=== PATIENT | female | born 1970 | race Caucasian/White ===

== ENCOUNTER 2018-05-19 09:39 | Emergency (ER) | payer BC, OTHER ==
[2018-05-19 10:36] LABS: BILIRUBIN,URINE NEGATIVE (NEGATIVE); GLUCOSE, URINE (UA) NEGATIVE (NEGATIVE); KETONES,URINE (UA) NEGATIVE (NEGATIVE); LEUKOCYTE ESTERASE, URINE NEGATIVE (NEGATIVE); PROTEIN,URINE NEGATIVE (NEGATIVE); UROBILINOGEN,URINE 0.2 (NORMAL) E.U./dL (NORMAL)
[2018-05-19 10:40] LABS: CLARITY,URINE CLEAR (CLEAR)
[2018-05-19 10:41] LABS: BASOPHILS # (AUTO) 0.1 10^3/uL (0.0-0.1); EOSINOPHILS # (AUTO) 0.1 10^3/uL (0.0-0.7); EOSINOPHILS % (AUTO) 1.2 %; HGB - HEMOGLOBIN 14.7 g/dL (12.0-16.0); LYMPHOCYTES # (AUTO) 1.5 10^3/uL (1.5-3.5); LYMPHOCYTES % (AUTO) 27.4 %; MEAN CORPUSCULAR HEMOGLOBIN 33.6 pg (27.0-31.0); MEAN CORPUSCULAR HGB CONC 34.1 g/dL (32.0-36.0); MEAN CORPUSCULAR VOLUME 98.4 fL (81.0-99.0); MEAN PLATELET VOLUME 8.5 fL (7.9-10.8); MONOCYTES # (AUTO) 0.4 10^3/uL (0.0-1.0); MONOCYTES % (AUTO) 6.3 %; NEUTROPHILS # (AUTO) 3.6 10^3/uL (1.5-6.6); NEUTROPHILS % (AUTO) 64.1 %; PLT - PLATELET COUNT 184 10^3/uL (130-450); RED BLOOD COUNT 4.38 10^6/uL (4.20-5.40); RED CELL DISTRIBUTION WIDTH 12.2 % (12.0-15.0); WHITE BLOOD COUNT 5.6 x10^3/uL (4.8-10.8)
[2018-05-19 10:49] LABS: BACTERIA,URINE Rare /HPF (None Seen); MUCUS,URINE Few Strands; RBC,URINE 0-5 /HPF (0-5); SQUAMOUS EPITHELIAL CELL,UR RARE Squamous (<= Few)
[2018-05-19 11:13] LABS: ALBUMIN 4.4 g/dL (3.2-5.5); ALBUMIN/GLOBULIN RATIO 1.5 (1.0-2.2); BILIRUBIN,TOTAL 0.6 mg/dL (0.2-1.0); CALCIUM 9.8 mg/dL (8.5-10.3); CREATININE 0.8 mg/dL (0.4-1.0); TOTAL PROTEIN 7.4 g/dL (6.7-8.2)
--- NOTE | 2018-05-19 11:33 | ED Physician Documentation ---
PD HPI ABD PAIN - Stated complaint Stated Complaint: LOW BACK PAIN - Chief complaint Chief Complaint: General - History obtained from History obtained from: Patient, Family - History of Present Illness Timing - onset: Last night Timing - duration: Hours Timing - details: Abrupt onset, Now resolved Quality: Sharp, Pain Location: RUQ Radiation: Right flank Improved by: Other (nothing) Worsened by: Other (nothing) Associated symptoms: Nausea, Hematuria. No: Fever, Diarrhea, Constipation Similar symptoms before: Diagnosis (kidney stone) Recently seen: Clinic - Additional information Additional information: 47-year-old female with a prior history of kidney stone approximately 14 years ago has began to develop some urinary symptoms and about 3 weeks ago she passed a kidney stone on the right side. She had had these urinary symptoms and went into see someone at the clinic and was placed on some antibiotic for urinary tract infection and the infection apparently did not grow out. Following that she passed this stone. She developed pain in the middle of the night last night again on the right side and this is now resolved. She has been taking some Azo. Review of Systems Constitutional: denies: Fever, Chills Eyes: denies: Decreased vision Ears: denies: Ear pain Nose: denies: Congestion Throat: denies: Sore throat Cardiac: denies: Chest pain / pressure Respiratory: denies: Dyspnea, Cough GI: reports: Abdominal Pain. denies: Nausea, Vomiting, Constipation, Diarrhea : reports: Dysuria, Frequency Skin: denies: Rash Musculoskeletal: reports: Back pain. 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 - Present Medications Home Medications: Ambulatory Orders Medication Instructions Recorded Confirmed Etonogestrel [Nexplanon] 10/10/15 10/10/15 - Allergies Allergies/Adverse Reactions: Allergies Allergy/AdvReac Type Severity Reaction Status Date / Time No Known Drug Allergies Allergy Verified 10/10/15 14:59 - Social History Does the pt smoke?: Yes Smoking Status: Current every day smoker Does the pt drink ETOH?: No Does the pt have substance abuse?: No - Immunizations Immunizations are current?: No PD ED PE NORMAL - Vitals Vital signs reviewed: Yes (hypertensive ) - General General: Alert and oriented X 3, No acute distress, Well developed/nourished - HEENT HEENT: Atraumatic, PERRL - Neck Neck: Supple, no meningeal sign - Cardiac Cardiac: RRR, No murmur - Respiratory Respiratory: No respiratory distress, Clear bilaterally - Abdomen Abdomen: Soft, Non tender - Back Back: No CVA TTP, No spinal TTP - Derm Derm: Normal color, Warm and dry, No rash - Extremities Extremities: No deformity, No edema - Neuro Neuro: Alert and oriented X 3, coat baster 2-12 intact, No motor deficit, No sensory deficit, Normal speech Eye Opening: Spontaneous Motor: Obeys Commands Verbal: Oriented GCS Score: 15 - Psych Psych: Normal mood, Normal affect Results - Vitals Vitals: Vital Signs - 24 hr 05/19/18 09:57 Temperature 36.5 C Heart Rate 78 Respiratory 18 Rate Blood Pressure 132/98 H O2 Saturation 100 Oxygen O2 Source Room air - Labs Labs: Laboratory Tests 05/19/18 05/19/18 05/19/18 10:20 10:35 10:35 WBC 5.6 RBC 4.38 Hgb 14.7 Hct 43.1 MCV 98.4 MCH 33.6 H MCHC 34.1 RDW 12.2 Plt Count 184 MPV 8.5 Neut # (Auto) 3.6 Lymph # (Auto) 1.5 [place] # (Auto) 0.4 Eos # (Auto) 0.1 Baso # (Auto) 0.1 Absolute Nucleated RBC 0.01 Nucleated RBC % 0.1 Sodium 140 Potassium 3.6 Chloride 108 Carbon Dioxide 25 Anion Gap 7.0 BUN 10 Creatinine 0.8 Estimated GFR (MDRD) 77 L Glucose 96 Calcium 9.8 Total Bilirubin 0.6 AST 19 ALT 11 Alkaline Phosphatase 48 Total Protein 7.4 Albumin 4.4 Globulin 3.0 Albumin/Globulin Ratio 1.5 Lipase 45 Urine Color ORANGE Urine Clarity CLEAR Urine pH 6.0 Ur Specific [place] 1.010 Urine Protein NEGATIVE Urine Glucose (UA) NEGATIVE Urine Ketones NEGATIVE Urine Occult Blood Urine Nitrite Urine Bilirubin NEGATIVE Urine Urobilinogen 0.2 (NORMAL) Ur Leukocyte Esterase NEGATIVE Urine RBC 0-5 Urine WBC 0-3 Ur Squamous Epith Cells RARE Squamous Urine Bacteria Rare Urine Mucus Few Strands Ur Microscopic Review INDICATED Urine Culture Comments NOT INDICATED - Rads (name of study) CT abd/pel without Radiology: Prelim report reviewed (Impression: 1. Small bilateral nonobstructing renal stones. 2 No hydronephrosis or ureteral calculi 3 appendix sid 4 no other evidence of mass or inflammatory process in the abdomen or pelvis.), EMP read indepedently, See rad report PD MEDICAL DECISION MAKING - ED course Complexity details: reviewed old records, reviewed results, re-evaluated patient , considered differential, d/w patient, d/w family ED course: 47-year-old female with a prior history of kidney stones has by history it sounds like kidney stone that she apparently passed during the night. She has nontender kidney and no evidence of infection on evaluation of her urine and her CT scan she has 2 small nonobstructing stones in both kidneys. She is concerned about some urinary urgency and frequency that she has had and I have encouraged her to follow-up with her primary regarding this. She does state that her has been gone for some time that he is come back and she has had some excessive activity. She will hydrate and follow-up as needed. - Sepsis Event Vital Signs: Vital Signs - 24 hr 05/19/18 09:57 Temperature 36.5 C Heart Rate 78 Respiratory 18 Rate Blood Pressure 132/98 H O2 Saturation 100 Oxygen O2 Source Room air Departure - Departure Disposition: 01 Home, Self Care Clinical Impression: Renal lithiasis Condition: Stable Instructions: ED Stone Renal Passed Follow-Up: Your, doctor [Other]
--- NOTE | 2018-05-19 12:46 | CT Report ---
Reason: R flank pain Procedure Date: 05/19/2018 Accession Number: [id number] / [id number] Procedure: CT - Abdomen/Pelvis W/O CPT Code: FULL RESULT: EXAM: CT ABDOMEN AND PELVIS (CT KUB) EXAM DATE: 05/19/2018 12:25 PM. CLINICAL HISTORY: Right flank pain and history of renal stones. COMPARISONS: None. TECHNIQUE: Routine axial helical CT imaging was performed through the abdomen and pelvis without IV contrast. Reconstructions: Coronal and sagittal. In accordance with CT protocol optimization, one or more of the following dose reduction techniques were utilized for this exam: automated exposure control, adjustment of mA and/or KV based on patient size, or use of iterative reconstructive technique. FINDINGS: Lung Bases: Unremarkable. Right Kidney/Ureter: Normal size and morphology. 0.2 x 0.2 cm nonobstructing upper pole renal stone. No hydronephrosis or ureteral calculi. Small calcification adjacent to distal right ureter most likely a phlebolith. Left Kidney/Ureter: 0.2 x 0.3 cm nonobstructing upper pole stone. No hydronephrosis. Second smaller 0.1 cm lower pole stone. No hydronephrosis or ureteral calculi. Other Solid Organs: Noncontrast images of the solid organs are grossly unremarkable. Gallbladder/Bile Ducts: Unremarkable. Peritoneal Cavity: No free fluid, free air or jolanta adenopathy. Bowel is grossly unremarkable. Pelvic Organs: Multiple calcified phleboliths in the pelvis. Pelvic organs unremarkable on noncontrast imaging. Vasculature: Mild aortic calcification consistent with atherosclerosis. No aneurysmal dilatation. Other: None. IMPRESSION: 1. Small bilateral nonobstructing renal stones. 2. No hydronephrosis or ureteral calculi. 3. Appendix normal. 4. No other evidence of mass or inflammatory process in the abdomen or pelvis. RADIA
[2018-05-19 13:23] VITALS: BP 128/92
== END 2018-05-19 13:24 | disposition home or self-care (01) ==
LOC: ED 09:39
DX: N20.0 Calculus of kidney (principal); F17.200 Nicotine dependence, unspecified, uncomplicated
CPT/HCPCS: 36415; 74176; 80053; 81001; 81003; 83690; 85025; 87086; 99283

== ENCOUNTER 2018-06-15 11:15 | Outpatient (CLI) | payer OTHER | END 2018-06-15 11:16 | disposition home or self-care (01) | LOC: LAB.R 11:15 | PROVIDERS: ATTEND Registered Nurse | DX: Z11.3 Encounter for screening for infections with a predominantly sexual mode of transmission (principal) | CPT/HCPCS: 87491; 87591 ==

== ENCOUNTER 2018-11-21 08:00 | Outpatient (CLI) | payer OTHER | END 2018-11-21 23:59 | disposition home or self-care (01) | LOC: LAB.R 08:00 | PROVIDERS: ATTEND Registered Nurse | DX: N89.8 Other specified noninflammatory disorders of vagina (principal) | CPT/HCPCS: 87491; 87591 ==

== ENCOUNTER 2018-11-23 08:00 | Outpatient (CLI) | payer OTHER | END 2018-11-23 23:59 | disposition home or self-care (01) | LOC: LAB.R 08:00 | PROVIDERS: ATTEND Registered Nurse | DX: N89.8 Other specified noninflammatory disorders of vagina (principal) | CPT/HCPCS: 87491; 87591 ==

== ENCOUNTER 2022-01-04 10:15 | Outpatient (CLI) | payer OTHER ==
--- NOTE | 2022-01-05 14:08 | Mammography Report ---
BILATERAL DIGITAL SCREENING MAMMOGRAM 3D/2D WITH AUGMENTATION: 01/04/2022 CLINICAL: Baseline exam Routine screening. No prior exams were available for comparison. The tissue of both breasts is heterogeneously dense. T his may lower the sensitivity of mammography. Bilateral breast implants are intact. No significant masses, calcifications, or other findings are seen in either breast. IMPRESSION: NEGATIVE There is no mammographic evidence of malignancy. A 1 year screening mammogram is recommended. This exam was interpreted at Station ID: [id number]. NOTE: For mammograms, a report in lay terms will be sent to the patient. Approximately 15% of breast malignancies will not be visualized mammographically. In the management of a palpable breast mass, a negative mammogram must not discourage biopsy of a clinically suspicious lesion. Electronically Signed By: Reji Wilder M.D. [facility] [place]:01/04/2022 13:17:34 ACR BI-RADS Category 1: Negative 3341F PARENCHYMAL PATTERN: (D) - The breast(s) demonstrate(s) heterogeneously dense fibroglandular kris isbell. BI-RADS CATEGORY: (1) - 1 RECOMMENDATION: (ANNUAL) - Recommend routine annual screening mammography. [id number] 1 year screening LATERALITY: (B)
== END 2022-01-04 10:16 | disposition home or self-care (01) ==
LOC: DI.N 10:15
PROVIDERS: ATTEND Obstetrics & Gynecology
DX: Z12.31 Encounter for screening mammogram for malignant neoplasm of breast (principal); Z98.82 Breast implant status

== ENCOUNTER 2022-01-24 01:56 | Emergency (ER) | payer OTHER ==
[2022-01-24 02:17] LABS: BASOPHILS % (AUTO) 0.7 %; EOSINOPHILS % (AUTO) 1.7 %; HCT - HEMATOCRIT 42.7 % (37.0-47.0); HGB - HEMOGLOBIN 14.3 g/dL (12.0-16.0); LYMPHOCYTES % (AUTO) 36.1 %; MEAN CORPUSCULAR HEMOGLOBIN 32.9 pg (27.0-31.0); MEAN CORPUSCULAR HGB CONC 33.5 g/dL (32.0-36.0); MEAN CORPUSCULAR VOLUME 98.2 fL (81.0-99.0); MEAN PLATELET VOLUME 10.1 fL (7.9-10.8); MONOCYTES % (AUTO) 5.8 %; NEUTROPHILS % (AUTO) 55.5 %; PLT - PLATELET COUNT 212 10^3/uL (130-450); RED BLOOD COUNT 4.35 10^6/uL (4.20-5.40); RED CELL DISTRIBUTION WIDTH 12.1 % (12.0-15.0); WHITE BLOOD COUNT 11.5 x10^3/uL (4.8-10.8)
[2022-01-24 02:18] LABS: ABNORMAL LYMPHS % (MANUAL) 0 %; BAND NEUTROPHILS % (MANUAL) 0 %
[2022-01-24 02:28] LABS: ALBUMIN 4.1 g/dL (3.2-5.5); ALBUMIN/GLOBULIN RATIO 1.3 (1.0-2.2); BILIRUBIN,TOTAL 0.6 mg/dL (0.2-1.0); CALCIUM 9.5 mg/dL (8.5-10.3); CREATININE 0.9 mg/dL (0.4-1.0); POTASSIUM 3.4 mmol/L (3.5-5.0); TOTAL PROTEIN 7.2 g/dL (6.7-8.2)
[2022-01-24] MEDS ORDERED: SODIUM CHLORIDE 0.9% 1,000 ML IV STA (02:30)
[2022-01-24] MEDS ORDERED: HYDROmorphone 1 MG/ML CARPUJECT IVP STA (02:30)
[2022-01-24] MEDS ORDERED: KETOROLAC 30 MG/ML VIAL IVP STA (02:30)
[2022-01-24] MEDS ORDERED: DROPERIDOL 5 MG/2 ML VIAL IVP STA (02:30)
[2022-01-24 02:37] LABS: DIFFERENTIAL COMMENT MANUAL DIFFERENTIAL; EOSINOPHILS # (MANUAL) 0.1 10^3/uL (0-0.7); LYMPHOCYTES # (MANUAL) 4.3 10^3/uL (1.5-3.5); LYMPHOCYTES % (MANUAL) 37 %; MONOCYTES # (MANUAL) 0.8 10^3/uL (0.0-1.0); NEUTROPHILS # (MANUAL) 6.3 10^3/uL (1.5-6.6); PLATELET ESTIMATE, MANUAL NORMAL (130-450,000) (NORMAL); PLATELET MORPHOLOGY NORMAL APPEARANCE (NORMAL); RBC MORPHOLOGY (MULTIPLE) NORMAL APPEARANCE (NORMAL); WBC MORPHOLOGY (MULTIPLE) NORMAL APPEARANCE (NORMAL)
[2022-01-24] MEDS ORDERED: DROPERIDOL 5 MG/2 ML VIAL ONE (02:51)
[2022-01-24 03:21] LABS: HCG,QUALITATIVE BLOOD NEGATIVE
--- NOTE | 2022-01-24 03:27 | ED Physician Documentation ---
History of Present Illness - Stated complaint Stated Complaint: BLOOD IN URINE, BACK PX, VOMIT - Chief complaint Chief Complaint: Abd Pain - History obtained from History obtained from: Patient, Family - Additonal information Additional information: The patient comes to the emergency department with chief complaint of left flank pain. Her sister is with her and give some of the history because the patient is quite uncomfortable and it is difficult for her to talk. Sister states the patient began to have pain few hours ago and then it has intensified. It is in her left flank and right under her ribs on the lateral aspect. The patient has a history of kidney stones previously but states this feels different. She noticed some pink discoloration in her urine over she went most recently. She denies dysuria. No fevers or chills. She has been nauseated and retching. She was feeling fine before the onset of the pain. No fevers or chills. She has no history of chronic back problems. Review of records reveals patient was last here in 2018 for similar symptoms. No other complaints at this time. Review of Systems Ten Systems: 10 systems reviewed and negative Constitutional: reports: Reviewed and negative Eyes: reports: Reviewed and negative Ears: reports: Reviewed and negative Nose: reports: Reviewed and negative Throat: reports: Reviewed and negative Cardiac: reports: Reviewed and negative Respiratory: reports: Reviewed and negative GI: reports: Abdominal Pain (Left flank), Nausea, Vomiting : reports: Reviewed and negative Skin: reports: Reviewed and negative Musculoskeletal: reports: Back pain (Left) Neurologic: reports: Reviewed and negative Psychiatric: reports: Reviewed and negative Endocrine: reports: Reviewed and negative Immunocompromised: reports: Reviewed and negative PD PAST MEDICAL HISTORY - Past Medical History Past Medical History: Yes : Kidney stones - Past Surgical History 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, 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 - Present Medications Home Medications: Ambulatory Orders Medication Instructions Recorded Confirmed Etonogestrel [Nexplanon] 10/10/15 10/10/15 HYDROcod/ACETAM 5/325 [Cabool 5/325] 1 - 2 tablet PO Q6H PRN #14 tablet 01/24/22 Ondansetron Odt [Zofran] 4 mg TL Q6H PRN #10 tablet 01/24/22 Tamsulosin HCl [Flomax] 0.4 mg PO DAILY #7 cap 01/24/22 - Allergies Allergies/Adverse Reactions: Allergies Allergy/AdvReac Type Severity Reaction Status Date / Time No Known Drug Allergies Allergy Verified 01/24/22 02:05 - Social History Does the pt smoke?: Yes Smoking Status: Current every day smoker Does the pt drink ETOH?: No Does the pt have substance abuse?: No - Immunizations Immunizations are current?: No - POLST Patient has POLST: No PD ED PE NORMAL - Vitals Vital signs reviewed: Yes - General General: Well developed/nourished, Other (The patient is alert and answers questions appropriately when she is directly question. She is clutching her side, intermittently crying out, and actively vomiting.) - HEENT HEENT: Atraumatic, PERRL, EOMI, Moist mucous membranes - Neck Neck: Supple, no meningeal sign - Cardiac Cardiac: RRR, No murmur - Respiratory Respiratory: No respiratory distress, Clear bilaterally - Abdomen Abdomen: Soft, Non distended, Other (Moderate left flank tenderness, no rebound or guarding. No anterior tenderness. 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, Normal speech - Psych Psych: Normal mood, Normal affect Results - Vitals Vitals: Vital Signs - 24 hr 01/24/22 01/24/22 01/24/22 02:00 02:13 02:54 Temperature 36.6 C Heart Rate 70 58 L 61 Respiratory 24 20 12 Rate Blood Pressure 176/115 H 136/112 H 178/102 H O2 Saturation 100 100 100 01/24/22 01/24/22 03:16 03:37 Temperature Heart Rate 60 62 Respiratory 14 13 Rate Blood Pressure 143/91 H 139/88 H O2 Saturation 95 97 Oxygen O2 Source Room air - Labs Labs: Laboratory Tests 01/24/22 01/24/22 01/24/22 02:09 02:09 02:09 WBC 11.5 H RBC 4.35 Hgb 14.3 Hct 42.7 MCV 98.2 MCH 32.9 H MCHC 33.5 RDW 12.1 Plt Count 212 MPV 10.1 Neut # (Auto) Not Reportable Lymph # (Auto) Not Reportable [place] # (Auto) Not Reportable Eos # (Auto) Not Reportable Baso # (Auto) Not Reportable Absolute Nucleated RBC Not Reportable Total Counted 100 Band Neuts % (Manual) 0 Abnorm Lymph % (Manual) 0 Nucleated RBC % Not Reportable Neutrophils # (Manual) 6.3 Lymphocytes # (Manual) 4.3 H Monocytes # (Manual) 0.8 Eosinophils # (Manual) 0.1 Basophils # (Manual) 0.0 Differential Comment MANUAL DIFFERENTIAL WBC Morphology NORMAL APPEARANCE Platelet Estimate NORMAL (130-450,000) Platelet Morphology NORMAL APPEARANCE RBC Morph Micro Appear NORMAL APPEARANCE Sodium 140 Potassium 3.4 L Chloride 105 Carbon Dioxide 25 Anion Gap 10.0 BUN 13 Creatinine 0.9 Estimated GFR (MDRD) 66 L Glucose 111 H Calcium 9.5 Total Bilirubin 0.6 AST 19 ALT 12 Alkaline Phosphatase 44 Total Protein 7.2 Albumin 4.1 Globulin 3.1 Albumin/Globulin Ratio 1.3 Lipase 51 Serum HCG, Qual NEGATIVE Urine Color Urine Clarity Urine pH Ur Specific [place] Urine Protein Urine Glucose (UA) Urine Ketones Urine Occult Blood Urine Nitrite Urine Bilirubin Urine Urobilinogen Ur Leukocyte Esterase Urine RBC Urine WBC Ur Squamous Epith Cells Urine Bacteria Ur Microscopic Review Urine Culture Comments Urine HCG, Qual 01/24/22 01/24/22 03:40 03:40 WBC RBC Hgb Hct MCV MCH MCHC RDW Plt Count MPV Neut # (Auto) Lymph # (Auto) [place] # (Auto) Eos # (Auto) Baso # (Auto) Absolute Nucleated RBC Total Counted Band Neuts % (Manual) Abnorm Lymph % (Manual) Nucleated RBC % Neutrophils # (Manual) Lymphocytes # (Manual) Monocytes # (Manual) Eosinophils # (Manual) Basophils # (Manual) Differential Comment WBC Morphology Platelet Estimate Platelet Morphology RBC Morph Micro Appear Sodium Potassium Chloride Carbon Dioxide Anion Gap BUN Creatinine Estimated GFR (MDRD) Glucose Calcium Total Bilirubin AST ALT Alkaline Phosphatase Total Protein Albumin Globulin Albumin/Globulin Ratio Lipase Serum HCG, Qual Urine Color RED/BLOODY Urine Clarity CLEAR Urine pH 7.0 Ur Specific [place] 1.020 Urine Protein NEGATIVE Urine Glucose (UA) NEGATIVE Urine Ketones NEGATIVE Urine Occult Blood LARGE H Urine Nitrite NEGATIVE Urine Bilirubin NEGATIVE Urine Urobilinogen 0.2 (NORMAL) Ur Leukocyte Esterase NEGATIVE Urine RBC TNTC H Urine WBC 0-3 Ur Squamous Epith Cells NONE SEEN Urine Bacteria Rare Ur Microscopic Review INDICATED Urine Culture Comments NOT INDICATED Urine HCG, Qual NEGATIVE PD MEDICAL DECISION MAKING - ED course Complexity details: reviewed old records, reviewed results, re-evaluated patient, considered differential, d/w patient, d/w family ED course: The patient was treated symptomatically with Toradol, droperidol, and Dilaudid, as well as IV fluids. She was worked up with labs and CT scan of the abdomen and pelvis, Which showed a 4 mm left ureteral calculus. Incidentally, patient was also found to have pancreatic ductal dilatation which was not present for years ago at the time of her last CT scan. I discussed the findings with the patient, who is feeling much better after symptomatic treatment. I have advised her regarding follow-up for the kidney stone, but I have also advised her regarding the need to follow-up with her primary care physician about the pancreatic ductal dilatation. The patient understands that this finding could represent an early sign of pancreatic cancer and that she should not delay in following this up. We have discussed that the necessary test would be either a CT or an MRI with pancreatic protocol. Departure - Departure Disposition: 01 Home, Self Care Clinical Impression: Kidney stone on left side Condition: Stable Instructions: ED Stone Renal W Colic Follow-Up: Jazmin Riojas MD [Physician No Access] - Ernestine Goetz MD [Physician No Access] - Prescriptions: Tamsulosin HCl [Flomax] 0.4 mg PO DAILY #7 cap HYDROcod/ACETAM 5/325 [Cabool 5/325] 1 - 2 tablet PO Q6H PRN #14 tablet PRN Reason: Pain Ondansetron Odt [Zofran] 4 mg TL Q6H PRN #10 tablet PRN Reason: Nausea / Vomiting Comments: Your CT scan shows a left-sided kidney stone that is in the midst of passing. This may pass in the matter of hours or it may take some days to a couple of weeks. The size indicates that it should be expected to pass on its own without further intervention. Please take the pain and nausea medication as needed to help with the symptoms in the meantime, and please drink plenty of fluids. If in a week you are still having symptoms, then please make an appointment with urology to follow-up and discuss further intervention. Your CT scan incidentally also showed new dilation of your pancreatic ducts which was not present on your last CT scan in 2018. There is no obvious cancerous lesion or other abnormality of the pancreas, but this finding needs to be followed up by her primary doctor with either a CT with pancreatic protocol, or an MRI with pancreatic protocol. Please make the next available appointment to follow-up with your doctor regarding this. [facility] [place].
[2022-01-24 03:48] LABS: BILIRUBIN,URINE NEGATIVE (NEGATIVE); GLUCOSE, URINE (UA) NEGATIVE (NEGATIVE); KETONES,URINE (UA) NEGATIVE (NEGATIVE); LEUKOCYTE ESTERASE, URINE NEGATIVE (NEGATIVE); NITRITE,URINE NEGATIVE (NEGATIVE); OCCULT BLOOD,URINE LARGE (NEGATIVE); PROTEIN,URINE NEGATIVE (NEGATIVE); UROBILINOGEN,URINE 0.2 (NORMAL) E.U./dL (NORMAL)
[2022-01-24 03:49] LABS: CLARITY,URINE CLEAR (CLEAR)
[2022-01-24 03:50] LABS: HCG UR QUAL NEGATIVE
[2022-01-24 03:59] LABS: BACTERIA,URINE Rare /HPF (None Seen); RBC,URINE TNTC /HPF (0-5); SQUAMOUS EPITHELIAL CELL,UR NONE SEEN (<= Few); WBC,URINE 0-3 /HPF (0-5)
[2022-01-24 05:12] VITALS: BP 143/96
--- NOTE | 2022-01-24 11:14 | CT Report ---
PROCEDURE: Abdomen/Pelvis WO INDICATIONS: Left flank pain. TECHNIQUE: Noncontrast 5 mm thick sections acquired from the diaphragms to the symphysis. 5 mm coronal and sagi ttal reformats were then performed. For radiation dose reduction, the following was used: automated exposure control, adjustment of mA and/or kV according to patient size. COMPARISON: CT abdomen and pelvis without, 05/19/2018. FINDINGS: Image quality: Excellent. ABDOMEN: Lung bases: Left basilar atelectasis. Small diaphragmatic hernia in the posterior right hemidiaphrag m. Heart size is normal. Note is made of bilateral breast implants. Solid organs: Liver and spleen are normal in size. Gallbladder is normal. Pancreas is normal in contours. There is pancreatic duct dilation measuring up to 7 mm, new since the last exam. No adrenal nodules. There is a 4 mm stone in the mid left ureter demonstrating CT density 746.9 Hounsfield units. There i s mild left hydronephrosis. Kidneys are normal in size. No other renal calculi are present. Peritoneum and bowel: Unenhanced bowel loops demonstrate normal wall thickness and caliber. No free fluid or air. Nodes and vessels: No retroperitoneal or mesenteric adenopathy by size criteria. Aorta and inferior vena cava are normal in caliber. There is moderate aortic calcification. Miscellaneous: Tiny fat-containing umbilical ventral hernia.. PELVIS: Genitourinary: Bladder wall thickness is normal. Miscellaneous: No inguinal hernias or adenopathy. Bones: No suspicious bony lesions. No vertebral body compression fractures. IMPRESSION: 1. There is a 4 mm mid left ureteral stone, causing mild left hydronephrosis. 2. New pancreatic duct dilation measuring up to 7 mm. No mass is seen on the noncontrast head CT. [facility] pancreatic protocol CT or MRI with and without contrast for follow-up evaluation. No significant discrepancy with the preliminary interpretation. Reviewed by: Missy Echols MD on 01/24/2022 11:13 AM PDT Approved by: Missy Echols MD on 01/24/2022 11:13 AM PDTal Station ID: [id number]
== END 2022-01-24 04:15 | disposition home or self-care (01) ==
LOC: ED 01:56
DX: N13.2 Hydronephrosis with renal and ureteral calculous obstruction (principal); F17.200 Nicotine dependence, unspecified, uncomplicated
CPT/HCPCS: 36415; 74176; 80053; 81001; 81025; 83690; 84703; 85025; 96374; 96375; 99282; 99284; J1170; 81003; 87086

== ENCOUNTER 2024-04-10 12:19 | Outpatient (CLI) | payer OTHER ==
--- NOTE | 2024-04-11 10:37 | Mammography Report ---
BILATERAL DIGITAL DIAGNOSTIC MAMMOGRAM 3D/2D WITH AUGMENTATION: 04/10/2024 CLINICAL: Possible ruptured bilateral implants. Due for bilateral exam. Comparison is made to exam dated: 01/04/2022 mammogram - . Both breasts are heterogeneously dense, which may obscure small masses (category c / 51-75% glandular tissue). Bilateral retropectoral saline implants are stable and intact and have several stable folds. No significant masses, calcifications, or other findings are seen in either breast. Specifically, no other finding to correspond to the patient's palpable abnormality. IMPRESSION: BENIGN Bilateral saline implants are intact and stable compared to prior. No evidence of rupture or new asym metry. There is no mammographic evidence of malignancy. Return to annual mammogram screening schedule is recommended. Findings and recommendations were conveyed to the patient at time of exam. Based on the Tyrer Cuzick model (a risk assessment model) the patient's lifetime risk is 12.9% and he r 10 year risk is 3.4%. According to the ACR, ACS, and NCCN guidelines, an annual breast MRI exam adrianna ng with mammogram is recommended if the patient's lifetime risk is 20% or greater. This exam was interpreted at Station ID: [id number]. NOTE: For mammograms, a report in lay terms will be sent to the patient. Approximately 15% of breast malignancies will not be visualized mammographically. In the management of a palpable breast mass, a negative mammogram must not discourage biopsy of a clinically suspicious lesion. Electronically Signed By: Lacy mason/:04/10/2024 13:12:31 letter sent: No_Letter ACR BI-RADS Category 2: Benign Finding(s) 3342F PARENCHYMAL PATTERN: (D) - The breast(s) demonstrate(s) heterogeneously dense fibroglandular kris isbell. BI-RADS CATEGORY: (2) - 2 Mammogram [id number] return to screening LATERALITY: (B)
== END 2024-04-10 12:20 | disposition home or self-care (01) ==
LOC: DI 12:19
PROVIDERS: ATTEND Obstetrics & Gynecology
DX: R92.333 Mammographic heterogeneous density, bilateral breasts (principal)

== ENCOUNTER 2024-06-04 14:04 | Outpatient (CLI) | payer OTHER ==
--- NOTE | 2024-06-04 17:28 | DEXA Report ---
PROCEDURE: Dexa Spine and/or Hip INDICATIONS: UNDERWEIGHT TECHNIQUE: Dual energy x-ray absorptiometry (DXA) was performed on a [employer] System. Regions measur ed are the AP Spine, femoral neck, and if needed forearm. COMPARISON: None FINDINGS: Lumbar Spine: Bone Mineral Density: 1.129 g/cm/cm,T score: -0.4. Left Femoral Neck: Bone Mineral Density: 0.862 g/cm/cm, T score: -1.3. Left Hip: Bone Mineral Density: 0.933 g/cm/cm,T score: -0.6. FRAX risk factors: None given. 10 year risk of major osteoporotic fracture: 4.5% major osteoporotic fracture = hip, clinical vertebral, proximal humerus, distal forearm 10 year risk of hip fracture: 0.5% (T score greater or equal to -1.0: NORMAL) (T score from -1.1 to -2.4: OSTEOPENIA) (T score less than or equal to -2.5 to: OSTEOPOROSIS) Impression: By WHO criteria, this patient has low bone density (osteopenia). The 10 year risk of major osteoporotic fracture is 4.5% and of a hip fracture is 0.5%. Patients with diagnosis of osteoporosis or osteopenia should have regular bone mineral density assess ment. For those eligible for Medicare, routine testing is allowed once every 2 years. Testing frequ ency can be increased for patients who have rapidly progressing disease or for those who are receivin g medical therapy to restore bone mass. Reviewed by: Rahul Cain MD on 06/04/2024 5:26 PM PDT Approved by: Rahul Cain MD on 06/04/2024 5:26 PM PDT Station ID: [id number]
== END 2024-06-04 14:05 | disposition home or self-care (01) ==
LOC: DI 14:04
PROVIDERS: ATTEND Obstetrics & Gynecology
DX: M85.88 Other specified disorders of bone density and structure, other site (principal)